=== PATIENT | female | born 1950 | race Caucasian/White ===

== ENCOUNTER 2018-06-10 12:02 | Emergency (ER) | payer OTHER ==
--- NOTE | 2018-06-10 12:42 | RAD REPORT ---
EXAM DESCRIPTION: CT - Int Auditory Canals Wo Con - 06/10/2018 12:31 pm CLINICAL HISTORY: Mastoiditis, persistent pain behind the right ear COMPARISON: None. TECHNIQUE: Axial 1 millimeter thick images were obtained through the temporal bones. Sagittal and co maryann reformatted images were generated and reviewed. The CT scan was performed using dose optimization techniques as appropriate to a performed exam incl uding one or more of the following: Automated exposure control, adjustment of the mA and/or kV accord ing to patient size (this includes techniques or standardized protocols for targeted exams where dose is matched to indication/reason for exam) and use of iterative reconstruction technique. FINDINGS: Paranasal sinuses are clear. No globe or orbital content abnormality. Intracranial portion examination is grossly normal though brain parenchymal detail is limited on a temporal bone protocol CT study. No gross abnormality at either CP angle. Mastoid air cells are clear. No bone disruption identified. There is cerumen in the right external au ditory canal. Middle ear is fully aerated. No abnormality of the ossicles. Vestibule, cochlear and se mi circular canals without suspicious finding. No abnormal bony sclerosis or bone disruption identifi able. Contralateral asymptomatic left side temporal bone imaging shows no suspicious finding. No widening of either internal auditory canal. Temporomandibular joint show no suspicious findings. No abnormal finding in the soft tissues overlying the temporal bone. Parotid gland is unremarkable. IMPRESSION: Right-side mastoid air cells are clear. Temporal bone CT imaging shows no suspicious fin ding.
[2018-06-10] MEDS ORDERED: DEXAMETHASONE 10 MG/ML VIAL ONE (13:29)
--- NOTE | 2018-06-10 13:29 | ER ---
Nurse's Notes [facility] Name: Alana Burns Age: 67 yrs Sex: Female : 1950 Arrival Date: 06/10/2018 Time: 12:03 Bed 15 Private MD: Ajay Boothe Diagnosis: Neuralgia and neuritis, unspecified Presentation: 06/10 12:07 Initial Sepsis Screen: Does the patient have a suspected source of infection? No. rb1 Patient's initial sepsis screen is negative. 12:11 Presenting complaint: Patient states: Pain behind R ear since that has been ph worsening, also reports nausea, denies V/D or fever, sent by Dr Boothe for CT scan. Transition of care: patient was not received from another setting of care. Onset of symptoms was June 10, 2018. Risk Assessment: Do you want to hurt yourself or someone else? Patient reports no desire to harm self or others. Initial Sepsis Screen: Does the patient meet any 2 criteria? No. Patient's initial sepsis screen is negative. Care prior to arrival: None. 12:11 Method Of Arrival: Ambulatory ph 12:11 Acuity: EARL 3 ph Historical: - Allergies: 12:13 Iodine; ph 12:13 narcotic pain meds; ph - PMHx: 12:13 Hypertension; Glaucoma; ph - Immunization history:: Adult Immunizations up to date. - Ebola Screening: : Patient negative for fever greater than or equal to 101.5 degrees Fahrenheit, and additional compatible Ebola Virus Disease symptoms. - Social history:: Patient/guardian denies using Smoking status: . Screenin:07 Abuse screen: Denies threats or abuse. Nutritional screening: No deficits noted. rb1 Tuberculosis screening: No symptoms or risk factors identified. Fall Risk None identified. Assessment: 12:07 General: Appears uncomfortable, Behavior is calm, cooperative, Denies fever. Pain: rb1 Complains of pain in behind right ear Pain currently is 8 out of 10 on a pain scale. Pain began . Neuro: Level of Consciousness is awake, alert, obeys commands, Oriented to person, place, time, situation. Cardiovascular: Capillary refill < 3 seconds is brisk in bilateral fingers. Respiratory: Airway is patent Respiratory effort is even, unlabored, Respiratory pattern is regular, symmetrical. GI: Reports nausea. : No signs and/or symptoms were reported regarding the genitourinary system. Derm: Skin is pink, warm \T\ dry. Musculoskeletal: Range of motion: intact in all extremities. 12:07 Neuro: Denies dizziness. rb1 13:00 Reassessment: Patient appears in no apparent distress at this time. No changes from rb1 previously documented assessment. 13:40 Reassessment: Patient appears in no apparent distress at this time. Patient and/or rb1 family updated on plan of care and expected duration. Pain level reassessed. Patient is alert, oriented x 3, equal unlabored respirations, skin warm/dry/pink. Vital Signs: 12:13 BP 165 / 80; Pulse 59; Resp 16; Temp 97.3; Pulse Ox 97% on R/A; Weight 81.65 kg; Height ph 5 ft. 7 in. (170.18 cm); Pain 8/10; 12:56 BP 156 / 76; Pulse 59; Resp 20; Pulse Ox 98% on R/A; Pain 8/10; rb1 13:40 BP 155 / 73; Pulse 60; Resp 17; Pulse Ox 99% on R/A; rb1 12:13 Body Mass Index 28.19 (81.65 kg, 170.18 cm) ph ED Course: 12:03 Patient arrived in ED. sb2 12:04 Heather Godoy FNP-C is [facility]. kb 12:04 Pawel Yoder MD is Attending Physician. kb 12:05 Ajay Boothe MD is Private Physician. sb2 12:07 Patient has correct armband on for positive identification. Bed in low position. Call rb1 light in reach. Side rails up X 1. Pulse ox on. NIBP on. 12:13 Triage completed. ph 12:14 Arm band placed on Patient placed in an exam room. ph 12:16 Korina Yeboah, RN is Primary Nurse. rb1 12:27 CT completed. Patient tolerated procedure well. Patient moved to CT via wheelchair. sj Patient moved back from CT. 12:32 Int Auditory Canals Wo Con In Process Unspecified. EDMS 13:27 Ajay Boothe MD is Referral Physician. kb 13:50 No provider procedures requiring assistance completed. Patient did not have IV access ca1 during this emergency room visit. Administered Medications: 13:24 Drug: Decadron 10 mg Route: IM; Site: right gluteus; rb1 13:48 Follow up: Response: No adverse reaction hb Outcome: 13:28 Discharge ordered by MD. kern 13:50 Discharged to home ambulatory. ca1 13:50 Condition: stable 13:50 Discharge instructions given to patient, Instructed on discharge instructions, follow up and referral plans. medication usage, Demonstrated understanding of instructions, follow-up care, medications, Prescriptions given X 1. 13:52 Patient left the ED. ca1 Signatures: Dispatcher [employer] EDMS Heather Godoy, SHOCHET-C SHOCHET-Mayra oRd Patricia, RN RN Korina Yeboah RN RN rb1 Daria Torres RN RN Kaylee Foster sb2 Alea Garcia RN RN ca1
--- NOTE | 2018-06-10 13:29 | EDPHYS ---
Physician Documentation [facility] Name: Alana Burns Age: 67 yrs Sex: Female : 1950 Arrival Date: 06/10/2018 Time: 12:03 Bed 15 Private MD: Ajay Pichardo ED Physician Pawel Yoder HPI: 06/10 13:24 This 67 yrs old Female presents to ER via Ambulatory with complaints of SENT kb BY DR PICHARDO. 13:24 The patient presents with pain, moderate, tenderness. The complaints affect the behind kb right ear. Onset: The symptoms/episode began/occurred 6 day(s) ago. Modifying factors: The symptoms are alleviated by nothing, the symptoms are aggravated by touching. Associated signs and symptoms: The patient has no apparent associated signs or symptoms. Severity of symptoms: At their worst the symptoms were moderate severe in the emergency department the symptoms are unchanged. The patient has not experienced similar symptoms in the past. The patient has been recently seen by a physician: the patient's primary care provider, with similar presenting complaints, and was sent to the [facility] Emergency Department for further evaluation. Pt went to Dr Pichardo for pain behind right ear. He sent her here to r/o mastoiditis. Historical: - Allergies: 12:13 Iodine; ph 12:13 narcotic pain meds; ph - PMHx: 12:13 Hypertension; Glaucoma; ph - Immunization history:: Adult Immunizations up to date. - Ebola Screening: : Patient negative for fever greater than or equal to 101.5 degrees Fahrenheit, and additional compatible Ebola Virus Disease symptoms. - Social history:: Patient/guardian denies using Smoking status: . ROS: 13:20 Constitutional: Negative for fever, chills, and weight loss, Cardiovascular: Negative kb for chest pain, palpitations, and edema, Respiratory: Negative for shortness of breath, cough, wheezing, and pleuritic chest pain, Abdomen/GI: Negative for abdominal pain, nausea, vomiting, diarrhea, and constipation, Back: Negative for injury and pain, MS/Extremity: Negative for injury and deformity, Skin: Negative for injury, rash, and discoloration, Neuro: Negative for headache, weakness, numbness, tingling, and seizure. 13:20 ENT: Positive for postauricular pain. Exam: 13:20 Constitutional: This is a well developed, well nourished patient who is awake, alert, kb and in no acute distress. Head/Face: Normocephalic, atraumatic. Chest/axilla: Normal chest wall appearance and motion. Nontender with no deformity. No lesions are appreciated. Cardiovascular: Regular rate and rhythm with a normal S1 and S2. No gallops, murmurs, or rubs. Normal PMI, no JVD. No pulse deficits. Respiratory: Lungs have equal breath sounds bilaterally, clear to auscultation and percussion. No rales, rhonchi or wheezes noted. No increased work of breathing, no retractions or nasal flaring. Abdomen/GI: Soft, non-tender, with normal bowel sounds. No distension or tympany. No guarding or rebound. No evidence of tenderness throughout. Skin: Warm, dry with normal turgor. Normal color with no rashes, no lesions, and no evidence of cellulitis. MS/ Extremity: Pulses equal, no cyanosis. Neurovascular intact. Full, normal range of motion. Neuro: Awake and alert, GCS 15, oriented to person, place, time, and situation. Cranial nerves II-XII grossly intact. Motor strength 5/5 in all extremities. Sensory grossly intact. Cerebellar exam normal. Normal gait. 13:20 ENT: External ear(s): pain/tenderness behind right ear, Ear canal(s): are normal, TM's: are normal. Vital Signs: 12:13 BP 165 / 80; Pulse 59; Resp 16; Temp 97.3; Pulse Ox 97% on R/A; Weight 81.65 kg; Height ph 5 ft. 7 in. (170.18 cm); Pain 8/10; 12:56 BP 156 / 76; Pulse 59; Resp 20; Pulse Ox 98% on R/A; Pain 8/10; rb1 13:40 BP 155 / 73; Pulse 60; Resp 17; Pulse Ox 99% on R/A; rb1 12:13 Body Mass Index 28.19 (81.65 kg, 170.18 cm) ph MDM: 12:04 Patient medically screened. kb 13:20 Data reviewed: vital signs, nurses notes. Data interpreted: Pulse oximetry: on room air kb is 98 %. Interpretation: normal. Counseling: I had a detailed discussion with the patient and/or guardian regarding: the historical points, exam findings, and any diagnostic results supporting the discharge/admit diagnosis, radiology results, the need for outpatient follow up, a family practitioner, to return to the emergency department if symptoms worsen or persist or if there are any questions or concerns that arise at home. 06/10 12:27 Order name: Int Auditory Canals Wo Con; Complete Time: 12:44 EDMS Administered Medications: 13:24 Drug: Decadron 10 mg Route: IM; Site: right gluteus; rb1 13:48 Follow up: Response: No adverse reaction hb Disposition: 15:43 Co-signature as Attending Physician, Pawel Yoder MD. rn Disposition: 06/10/18 13:28 Discharged to Home. Impression: Neuralgia and neuritis, unspecified. - Condition is Stable. - Discharge Instructions: Neuropathic Pain. - Prescriptions for Augmentin 875- 125 mg Oral Tablet - take 1 tablet by ORAL route every 12 hours for 10 days; 20 tablet. - Medication Reconciliation Form, Thank You Letter, Antibiotic Education, Prescription Opioid Use form. - Follow up: Emergency Department; When: As needed; Reason: Worsening of condition. Follow up: Ajay Pichardo MD; When: 2 - 3 days; Reason: Recheck today's complaints, Continuance of care, Re-evaluation by your physician. Signatures: Dispatcher [employer] [facility] Heather Godoy, RELIEF DOCKING MASTER-C RELIEF DOCKING MASTER-Ckb Pawel Yoder MD MD rn Amanda Brunson RN RN Korina Rodriguez RN RN rb1 Alea Garcia RN RN ca1 Baxter, Heather RN Corrections: (The following items were deleted from the chart) 12:27 12:06 Head Brain Wo [id number].RAD.BRZ ordered. [facility] 13:52 13:28 06/10/2018 13:28 Discharged to Home. Impression: Neuralgia and neuritis, ca1 unspecified. Condition is Stable. Forms are Medication Reconciliation Form, Thank You Letter, Antibiotic Education, Prescription Opioid Use. Follow up: Emergency Department; When: As needed; Reason: Worsening of condition. Follow up: Ajay Pichardo; When: 2 - 3 days; Reason: Recheck today's complaints, Continuance of care, Re-evaluation by your physician. kb
== END 2018-06-10 13:52 | disposition home or self-care (01) ==
LOC: ER 12:02
DX: M79.2 Neuralgia and neuritis, unspecified (principal); I10 Essential (primary) hypertension; Z88.5 Allergy status to narcotic agent; Z91.048 Other nonmedicinal substance allergy status
CPT/HCPCS: 70480; 96372; 99284; J1100

== ENCOUNTER → 2021-09-18 | Day surgery (SDC) | payer OTHER ==
--- NOTE | 2021-09-18 13:13 | RAD REPORT ---
EXAM DESCRIPTION: US - Guided FNA Non Breast - 09/18/2021 10:34 am CLINICAL HISTORY: Thyroid nodule ICD E04.1 COMPARISON: August 29, 2021 ultrasound TECHNIQUE: Risks, benefits and alternatives of procedure explained to the patient and informed conse nt obtained. Skin, subcutaneous and thyroid tissues anesthetized with lidocaine. Under sonographic guidance three 25 gauge needle passes were obtained into the 1.6 centimeter hypoech oic nodule containing calcification within the upper pole right lobe of thyroid gland. An additional 21 gauge needle pass was obtained. Specimens given to pathology. Patient experienced no immediate complication IMPRESSION: Fine-needle aspiration of a 1.6 centimeter nodule right lobe of the thyroid gland
== END ==
LOC: FNA 10:25
PROVIDERS: ATTEND Otolaryngology
PROC: 0GJK3ZZ Inspection of Thyroid Gland, Percutaneous Approach (ICD-10-PCS; principal; 2021-09-18)
DX: E04.1 Nontoxic single thyroid nodule (principal)
CPT/HCPCS: 88162